=== PATIENT | female | born 1945 | race Caucasian/White ===

== ENCOUNTER 2016-07-02 14:02 | Inpatient (IN) | payer MEDICARE, OTHER ==
[~2016-07-02] VITALS: Ht 157.5 cm; Wt 58.0 kg
[2016-07-06] MEDS ORDERED: ALEN1TAB48 PO (10:06)
[2016-07-06] MEDS ORDERED: MULTTAB67 PO (10:06)
[2016-07-06] MEDS ORDERED: HYDR-3583 PO (10:06)
[2016-07-06] MEDS ORDERED: LANS15CA PO (10:06)
[2016-07-06] MEDS ORDERED: MONT10TA4 PO (10:06)
[2016-07-06] MEDS ORDERED: METO25TA3 PO (10:06)
[2016-07-06] MEDS ORDERED: POTA-163 PO (10:06)
[2016-07-06] MEDS ORDERED: ASPI1TAB69 PO (10:06)
[2016-07-06] MEDS ORDERED: METR28.4 TOPICAL (10:06)
[2016-07-06] MEDS ORDERED: CALC1TAB12 PO (10:06)
[2016-07-06] MEDS ORDERED: MAGN400T2 PO (10:06)
[2016-07-06] MEDS ORDERED: ZOLP5TAB3 PO (10:06)
[2016-07-06] MEDS ORDERED: AMLO5TAB2 PO (10:06)
[2016-07-13] MEDS: D5-NS + KCL 20 MEQ INJ 1,000 ML IV SCH ×2 (00:20→17:00)
[2016-07-13] MEDS: PCA - TOTAL MG MORPHINE DELIVERED PER SHIFT SCH (00:30)
[2016-07-13] MEDS ORDERED: LACTATED RINGER'S 1,000 ML BAG IV ONE (12:00)
[2016-07-13] MEDS ORDERED: PARENTERAL ELECTROLYTES PH 7.4 1000 ML BAG IV ONE (12:00)
[2016-07-13] MEDS ORDERED: PHENYLEPH/NS 1000 MCG/10 ML SYR IV ONE ×2 (12:00→13:00)
[2016-07-13] MEDS ORDERED: PROPOFOL 200 MG/20 ML AMP IV ONE ×2 (12:00→13:00)
[2016-07-13] MEDS ORDERED: ePHEDrine/NS 50 MG/5 ML SYR IV ONE ×2 (12:00→13:00)
[2016-07-13] MEDS ORDERED: ONDANSETRON HCL 4 MG/2 ML VIAL IV PUSH ONE ×2 (12:00→13:00)
[2016-07-13] MEDS ORDERED: LACTATED RINGER'S 1000 ML IV SCH (12:45)
[2016-07-13] MEDS ORDERED: METOPROLOL TARTRATE 25 MG TAB PO PRN (12:45)
[2016-07-13] MEDS ORDERED: ceFAZolin 1,000 MG/NS 100 ML IV SCH ×2 (12:45)
[2016-07-13] MEDS ORDERED: INSULIN HUMAN REGULAR 1,000 UNITS/10 ML VIAL SQ PRN (12:45)
[2016-07-13] MEDS ORDERED: ALVIMOPAN 12 MG CAPSULE - On Call PO SCH (12:45)
[2016-07-13] MEDS ORDERED: DEXT 5%-NACL 0.9% 1000 ML INJ 1,000 ML IV SCH (12:45)
[2016-07-13] MEDS ORDERED: SODIUM CHLORID 0.9% 500 ML IV SCH (12:45)
[2016-07-13] MEDS ORDERED: METRONIDAZOLE 500 MG/100 ML ISONTONIC SOLN IV SCH (12:45)
[2016-07-13 12:49] VITALS: BP 100/60; PULSE 68; RESP 20; TEMP 97.9; O2SAT 100
[2016-07-13] MEDS ORDERED: fentaNYL CITRATE 250 MCG/5 ML AMP IV ONE (13:00)
[2016-07-13] MEDS ORDERED: NORMOSOL R INJ 1,000 ML IV ONE (13:00)
[2016-07-13] MEDS ORDERED: LACTATED RINGER'S 1000 ML INJ 1,000 ML IV ONE (13:00)
[2016-07-13] MEDS ORDERED: SUGAMMADEX SODIUM 200 MG/2 ML VIAL IV PUSH ONE ×2 (13:47)
[2016-07-13] MEDS ORDERED: ACETAMINOPHEN 1000 MG/100 ML VIAL IV ONE (13:48)
[2016-07-13] MEDS ORDERED: ARTIFICIAL TEARS OPTH OINT 3.5 APPLIC/3.5 GM TUBO ONE (13:58)
[2016-07-13] MEDS ORDERED: MIDAZOLAM HCL 2 MG/2 ML VIAL ONE (13:59)
[2016-07-13] MEDS ORDERED: FAMOTIDINE 20 MG/2 ML VIAL ONE (14:00)
[2016-07-13] MEDS ORDERED: DEXAMETHASONE SOD PHOS 4 MG/ML VIAL ONE (14:01)
--- NOTE | 2016-07-13 14:02 | PD.HP.UP ---
H&P Update Note The Pre-Admit History and Physical Examination regarding the above named patient was reviewed (including, but not limited to, vital signs, heart, lungs, co-morbid conditions), and upon re-examination it is noted that: the patient's condition has not significantly changed since the last examination. Kojo Elizabeth MD Jul 13, 2016 14:02
[2016-07-13] MEDS ORDERED: BENZOCAINE 6 MG/MENTHOL 10 MG LOZENGE SUCK-ON PRN (16:30)
[2016-07-13] MEDS ORDERED: ALENDRONATE SODIUM 70 MG TAB PO SCH (16:30)
[2016-07-13] MEDS ORDERED: ENALAPRILAT 2.5 MG/2 ML VIAL IV PRN (16:30)
[2016-07-13] MEDS ORDERED: ACETAMINOPHEN/HYDROcodone 325 MG/5 MG TAB PO PRN ×2 (16:30)
[2016-07-13] MEDS ORDERED: POTASSIUM CHLOR 20 MEQ PREMIX 100 ML IV PRN (16:30)
[2016-07-13] MEDS ORDERED: NALOXONE HCL 0.4 MG/ML AMP IV PRN (16:30)
[2016-07-13] MEDS ORDERED: POTASSIUM CHLOR 40 MEQ PREMIX 100 ML IV PRN (16:30)
[2016-07-13] MEDS ORDERED: ENALAPRILAT 1.25 MG/ML VIAL IV PRN (16:30)
[2016-07-13] MEDS ORDERED: Post-op Orders (for Pharmacy) MISC XX ONE (16:30)
[2016-07-13] MEDS ORDERED: SODIUM CHLORIDE 0.9% FLUSH 5 ML FLUSH IVF PRN (16:30)
[2016-07-13] MEDS ORDERED: ACETAMINOPHEN 325 MG TAB PO PRN (16:30)
[2016-07-13] MEDS ORDERED: MORPHINE SULFATE 4 MG/ML INJ ONE (16:57)
[2016-07-13] MEDS ORDERED: KETOROLAC TROMETHAMINE 30 MG/ML (IVP) VIAL IVP PRN (17:00)
[2016-07-13] MEDS: MORPHINE SULFATE 30 MG/30 ML PCA IV SCH (17:13)
[2016-07-13] MEDS ORDERED: DO NOT ADM ANY ANTICOAGULANT DRUGS XX PRN (17:15)
[2016-07-13 20:00] VITALS: BP 115/60; PULSE 74; PULSE 80; RESP 18; TEMP 97.5; O2SAT 98
[2016-07-13] MEDS ORDERED: *morphine SULFATE 8 MG/ML PERIprocedure ONLY ONE (20:19)
[2016-07-13 21:00] VITALS: PULSE 74
[2016-07-13] MEDS: METOCLOPRAMIDE HCL 10 MG/2 ML VIAL IVS SCH (21:00)
[2016-07-13] MEDS: SODIUM CHLORIDE 0.9% FLUSH 5 ML FLUSH IVF SCH (21:00)
[2016-07-13 22:00] VITALS: BP 95/57; PULSE 80; PULSE 97; RESP 18; O2SAT 97
[2016-07-13] MEDS: metroNIDAZOLE 500 MG INJ 100 ML IV SCH (22:00)
[2016-07-13 23:00] VITALS: PULSE 84; PULSE 97
[2016-07-14] VITALS (17 sets, daily range): BP systolic 82–136; BP diastolic 52–69; PULSE 76–100; RESP 14–21; TEMP 97.4–98.7; O2SAT 94–98
[2016-07-14] MEDS: PCA - TOTAL MG MORPHINE DELIVERED PER SHIFT SCH ×4 (02:00→22:00)
[2016-07-14] MEDS: metroNIDAZOLE 500 MG INJ 100 ML IV SCH ×2 (05:41→13:59)
[2016-07-14] MEDS: MORPHINE SULFATE 30 MG/30 ML PCA IV SCH (06:27)
--- NOTE | 2016-07-14 06:55 | MP ---
cc: SARAH DOLAN DATE OF SURGERY 07/13/2016 PREOPERATIVE DIAGNOSIS Diverticulitis POSTOPERATIVE DIAGNOSIS Diverticulitis PROCEDURE Cystoscopy with bilateral ureteral catheter placement. SURGEON Sarah Dolan MD ANESTHESIA General endotracheal tube FLUIDS 200 cc's crystalloid ESTIMATED BLOOD LOSS There was no blood loss. COMPLICATIONS No complications. CONDITION She tolerated the procedure well. DRAINS Two bilateral 5-[place] ureteral catheters and a 16-Northern Irish Teresa. INDICATIONS Tessy Rondon is a 71-year-old female who had a history of diverticulitis and had a colostomy placed in the past. Dr. Elizabeth and Dr. Shane were performing a takedown of the colostomy and requests were made for bilateral ureteral catheter placement. PROCEDURE The patient brought to the operating room, identified by myself as Tessy Rondon and placed in the dorsolithotomy position. She was prepped and draped in the usual sterile fashion, received preprocedure antibiotics, and general endotracheal tube anesthesia was administered. A 22-Northern Irish cystoscope was inserted bladder and medina cystoscopy did not reveal any abnormalities. The left ureteral orifice was identified and a 5 inches open-ended catheter was inserted on the left side without difficulty and then this was repeated on the right side without difficulty. A 16-Northern Irish Teresa was then inserted without difficulty. She tolerated the procedure well. Sarah Dolan SWT/DJL /2:52 PM /6:44 AM
[2016-07-14] MEDS: D5-NS + KCL 20 MEQ INJ 1,000 ML IV SCH ×4 (07:30→23:04)
[2016-07-14 07:57] LABS: BASOPHIL % 0.1 % (0.0-2.0); HEMATOCRIT 29.1 % (35.0-46.0); HEMO FLAGS DIFF FINAL; LYMPH % 5.1 % (9.0-44.0); LYMPHOCYTE # 0.5 TH/MM3 (1.0-4.8); MEAN CELL VOLUME 94.1 FL (80.0-100.0); MEAN CORPUSCULAR HEMOGLOBIN 31.6 PG (27.0-34.0); MEAN CORPUSCULAR HGB CONC 33.6 % (32.0-36.0); MONO % 6.8 % (0.0-8.0); PLATELET COUNT 139 TH/MM3 (150-450); RED BLOOD COUNT 3.09 MIL/MM3 (4.00-5.30); RED CELL DISTRIBUTION WIDTH 20.2 % (11.6-17.2); WHITE BLOOD COUNT 10.2 TH/MM3 (4.0-11.0)
[2016-07-14 08:12] LABS: BICARBONATE 22.7 MEQ/L (21.0-32.0); POTASSIUM 4.2 MEQ/L (3.5-5.1)
[2016-07-14] MEDS ORDERED: HETASTARCH 6%/LACTAT LYTES INJ 500 ML IV ONE (08:30)
[2016-07-14] MEDS: PANTOPRAZOLE SODIUM 40 MG VIAL IVP SCH (08:53)
[2016-07-14] MEDS: SODIUM CHLORIDE 0.9% FLUSH 5 ML FLUSH IVF SCH ×2 (08:53→19:28)
[2016-07-14] MEDS: METOCLOPRAMIDE HCL 10 MG/2 ML VIAL IVS SCH ×2 (08:53→20:15)
[2016-07-14] MEDS: METOPROLOL TARTRATE 25 MG TAB PO SCH (08:53)
[2016-07-14] MEDS: ALVIMOPAN 12 MG CAPSULE - Post-op dosing PO SCH ×2 (08:53→20:15)
[2016-07-14] MEDS: MONTELUKAST SODIUM 5 MG CHEWABLE TAB PO SCH (08:54)
[2016-07-14] MEDS: PANTOPRAZOLE SOD 40 MG DELAYED RELEASE TAB PO SCH (08:54)
[2016-07-14] MEDS: amLODIPine BESYLATE 5 MG TAB PO SCH (08:54)
[2016-07-14] MEDS ORDERED: ALVIMOPAN 12 MG CAPSULE PO SCH (21:00)
--- NOTE | 2016-07-14 22:44 | HHI.PR ---
Subjective Remarks C/R Surg POD #1 afebrile, VSS UO fair PHILIPPE mod Objective - Vital Signs Date Time Temp Pulse Resp B/P Pulse Ox O2 Delivery O2 Flow Rate FiO2 07/14/16 20:23 98.7 92 16 136/69 94 07/14/16 08:00 Nasal Cannula 2.00 Result Diagram: 07/14/16 0739 07/14/16 0739 Objective Remarks PE alert Abd - soft, wound dry A/P Assessment and Plan Imp: stable post-op OOB decr IVF - add lasix tx to floor Kojo Elizabeth MD Jul 14, 2016 22:44
[2016-07-14] MEDS: FUROSEMIDE 20 MG/2 ML VIAL IV PUSH SCH (23:03)
[2016-07-15 00:15] VITALS: BP 152/78; PULSE 109; RESP 16; TEMP 98.4; O2SAT 93
[2016-07-15] MEDS: ONDANSETRON HCL 4 MG/2 ML VIAL IV PRN ×3 (03:55→21:19)
[2016-07-15 04:22] VITALS: BP 149/84; PULSE 101; RESP 16; TEMP 97.2; O2SAT 93
[2016-07-15 04:34] LABS: AUTOMATED NEUTROPHIL # 6.1 TH/MM3 (1.8-7.7); BASOPHIL % 0.1 % (0.0-2.0); EOSINOPHIL % 0.3 % (0.0-4.0); HEMATOCRIT 30.7 % (35.0-46.0); HEMO FLAGS DIFF FINAL; LYMPH % 8.8 % (9.0-44.0); LYMPHOCYTE # 0.6 TH/MM3 (1.0-4.8); MEAN CELL VOLUME 94.3 FL (80.0-100.0); MEAN CORPUSCULAR HEMOGLOBIN 31.1 PG (27.0-34.0); MONO % 5.3 % (0.0-8.0); NEUT % 85.5 % (16.0-70.0); PLATELET COUNT 141 TH/MM3 (150-450); RED BLOOD COUNT 3.26 MIL/MM3 (4.00-5.30); RED CELL DISTRIBUTION WIDTH 20.2 % (11.6-17.2); WHITE BLOOD COUNT 7.1 TH/MM3 (4.0-11.0)
[2016-07-15 05:02] LABS: BICARBONATE 24.5 MEQ/L (21.0-32.0); POTASSIUM 3.7 MEQ/L (3.5-5.1)
[2016-07-15] MEDS: PCA - TOTAL MG MORPHINE DELIVERED PER SHIFT SCH ×3 (06:00→21:12)
[2016-07-15] MEDS: PANTOPRAZOLE SOD 40 MG DELAYED RELEASE TAB PO SCH (06:59)
--- NOTE | 2016-07-15 07:14 | HHI.PR ---
Subjective Remarks C/R Surg POD #2 afebrile, VSS UO fair PHILIPPE min Objective - Vital Signs Date Time Temp Pulse Resp B/P Pulse Ox O2 Delivery O2 Flow Rate FiO2 07/15/16 04:22 97.2 101 16 149/84 93 07/14/16 21:30 Nasal Cannula 2.00 Result Diagram: 07/15/167 07/15/16326 Objective Remarks PE alert Abd - soft, wound dry, wound clean A/P Assessment and Plan Imp: OOB - ambulate decr IVF - add lasix stents dc'Kojo Corey MD Jul 15, 2016 07:14
[2016-07-15] MEDS: D5-NS + KCL 20 MEQ INJ 1,000 ML IV SCH ×2 (07:47→21:13)
[2016-07-15] MEDS: MONTELUKAST SODIUM 5 MG CHEWABLE TAB PO SCH (07:49)
[2016-07-15] MEDS: ALVIMOPAN 12 MG CAPSULE - Post-op dosing PO SCH ×2 (07:49→21:11)
[2016-07-15] MEDS: METOPROLOL TARTRATE 25 MG TAB PO SCH (07:49)
[2016-07-15] MEDS: amLODIPine BESYLATE 5 MG TAB PO SCH (07:50)
[2016-07-15] MEDS: FUROSEMIDE 20 MG/2 ML VIAL IV PUSH SCH ×2 (07:51→21:12)
[2016-07-15] MEDS: METOCLOPRAMIDE HCL 10 MG/2 ML VIAL IVS SCH ×2 (07:52→21:12)
[2016-07-15] MEDS: PANTOPRAZOLE SODIUM 40 MG VIAL IVP SCH (07:53)
[2016-07-15] MEDS: SODIUM CHLORIDE 0.9% FLUSH 5 ML FLUSH IVF SCH ×2 (07:56→21:12)
[2016-07-15 08:00] VITALS: BP 155/86; PULSE 108; RESP 18; TEMP 98.8; O2SAT 93
[2016-07-15 12:00] VITALS: BP 153/78; PULSE 92; RESP 17; TEMP 96.4; O2SAT 100
[2016-07-15 16:00] VITALS: BP 148/83; PULSE 100; RESP 17; TEMP 100.1; O2SAT 95
[2016-07-15 20:00] VITALS: BP 146/78; PULSE 90; RESP 18; TEMP 98.4; O2SAT 96
[2016-07-15] MEDS: ZOLPIDEM TARTRATE 5 MG TAB PO PRN (21:19)
--- NOTE | 2016-07-15 22:06 | MP ---
cc: SHELBY CORDERO M.D. DATE OF SURGERY 07/15/16 PREOPERATIVE DIAGNOSIS History of perforated diverticulitis, attention to colostomy. PROCEDURE 1. Exploratory laparotomy with lysis of adhesions, 2. Segmental colon resection and low pelvic anastomosis, 3. Closure of colostomy. POSTOPERATIVE DIAGNOSIS History of perforated diverticulitis, attention to colostomy. SURGEON Dr. Matt Cordero TRAIN DISPATCHER Dr. Nava Shane PROCEDURE IN DETAIL The patient was placed in the supine position. After adequate general anesthesia, her legs were placed in [place] stirrups and supported appropriately. The abdomen and perineum were then prepped with Betadine solution and draped in the usual sterile fashion. With Dr. Shane's assistance, the abdomen was opened through the previous midline incision. Upon entering the abdominal cavity, adhesions to the parietal peritoneum were taken down. Exploration revealed some adhesions in the pelvis and the small bowel was mobilized up with both blunt and sharp dissection. The rectal stump was identified and had minimal residual inflammatory change. The small bowel was run from ligament of Treitz down to ileocecal valve and felt to be normal. The proximal colon was palpated very carefully and felt to be pretty unremarkable. The stomach and duodenum were normal. The liver and gallbladder were unremarkable. First. the rectal pouch was mobilized by incising the lateral peritoneal reflection entering the presacral space and mobilizing the bowel up off the presacral fascia down to the pelvic floor. At an appropriate point in the mid to proximal rectum, the mesorectum was taken using electrocautery and the bowel divided between a pursestring suture device and a Maribeth clamp. Next, the colostomy was taken down from its attachments in the abdominal wall, returned to the abdomen. The colon was fully mobilized by incising the lateral peritoneal attachments off the retroperitoneum. There did appear to be sufficient length to reach the rectal pouch without tension leaving the left colic vessels. At the appropriate point, the marginal artery was taken and the bowel divided between a pursestring suture device and a Maribeth clamp. The end of the bowel was sized to accept a 29-mm EEA stapling anvil and this was secured with a pursestring suture. Dr. Shane inserted the EEA stapling instrument transanally under direct vision and it was brought up to the end of the rectal pouch with pursestring suture tied. The stapler was then reassembled, the bowel line properly, the staple closed and fired. Upon withdrawal, two complete doughnuts of tissue were seen. Gentle insufflation did confirm an airtight anastomosis. Abdomen was then irrigated copiously with normal saline. Adequate hemostasis was achieved at all sites. A Ayush-Agee drain was placed down into the presacral space and brought up through a stab wound in the right lower quadrant, secured to the skin with a nylon suture. The midline incision was closed anatomically one layer using #1 PDS sutures to reapproximate the midline fascia. The subcu tissues was irrigated copiously and the skin closed with a row of surgical naomy. The colostomy site was also closed in two layers with running #1 PDS sutures for the respective fascial layers and then surgical naomy for the skin. Wound area washed with normal saline and dried, sterile dressing of Telfa and gauze applied. The patient tolerated the procedure quite well and was brought to the recovery room in stable condition. Sponge and needle counts were correct at the end of the procedure. MD FRITZ Lozano/ /7:26 AM /9:47 PM
[2016-07-16] VITALS: BP 145/72; PULSE 89; RESP 16; TEMP 96.8; O2SAT 95
[2016-07-16] MEDS: PCA - TOTAL MG MORPHINE DELIVERED PER SHIFT SCH ×2 (06:00→11:58)
[2016-07-16] MEDS: PANTOPRAZOLE SODIUM 40 MG VIAL IVP SCH (07:04)
[2016-07-16 08:00] VITALS: BP 138/92; PULSE 93; RESP 16; TEMP 98.8; O2SAT 99
[2016-07-16] MEDS: METOCLOPRAMIDE HCL 10 MG/2 ML VIAL IVS SCH ×2 (08:41→21:21)
[2016-07-16] MEDS: MONTELUKAST SODIUM 5 MG CHEWABLE TAB PO SCH (08:41)
[2016-07-16] MEDS: ALVIMOPAN 12 MG CAPSULE - Post-op dosing PO SCH ×2 (08:41→21:21)
[2016-07-16] MEDS: amLODIPine BESYLATE 5 MG TAB PO SCH (08:41)
[2016-07-16] MEDS: PANTOPRAZOLE SOD 40 MG DELAYED RELEASE TAB PO SCH (08:41)
[2016-07-16] MEDS: METOPROLOL TARTRATE 25 MG TAB PO SCH (08:41)
[2016-07-16] MEDS: FUROSEMIDE 20 MG/2 ML VIAL IV PUSH SCH ×2 (08:43→21:21)
[2016-07-16] MEDS: SODIUM CHLORIDE 0.9% FLUSH 5 ML FLUSH IVF SCH ×2 (08:47→21:22)
[2016-07-16 12:00] VITALS: BP 135/86; PULSE 78; RESP 17; TEMP 97.6; O2SAT 96
[2016-07-16 16:00] VITALS: BP 139/76; PULSE 79; RESP 16; TEMP 98.5; O2SAT 100
[2016-07-16 20:00] VITALS: BP 126/60; PULSE 84; RESP 16; TEMP 98.8; O2SAT 95
[2016-07-16] MEDS: ZOLPIDEM TARTRATE 5 MG TAB PO PRN (21:22)
[2016-07-16] MEDS: D5-NS + KCL 20 MEQ INJ 1,000 ML IV SCH (21:22)
--- NOTE | 2016-07-16 22:08 | HHI.PR ---
Subjective Remarks C/R Surg POD #3 afebrile, VSS UO fair PHILIPPE min +flatus Objective - Vital Signs Date Time Temp Pulse Resp B/P Pulse Ox O2 Delivery O2 Flow Rate FiO2 07/16/16 20:00 98.8 84 16 126/60 95 07/16/16 09:07 Room Air 07/16/16 00:00 2.00 Result Diagram: 07/15/167 07/15/16326 Objective Remarks PE alert Abd - soft, wound dry, wound alightly red lower pole A/P Assessment and Plan Imp: OOB - ambulate decr IVF - add lasix adv diet Kojo Elizabeth MD Jul 16, 2016 22:08
[2016-07-16 23:40] VITALS: BP 156/76; PULSE 85; RESP 18; TEMP 96.8; O2SAT 96
[2016-07-17 08:00] VITALS: BP 105/69; PULSE 96; RESP 15; TEMP 95.9; O2SAT 96
[2016-07-17] MEDS: MONTELUKAST SODIUM 5 MG CHEWABLE TAB PO SCH (08:11)
[2016-07-17] MEDS: PANTOPRAZOLE SODIUM 40 MG VIAL IVP SCH (08:11)
[2016-07-17] MEDS: PANTOPRAZOLE SOD 40 MG DELAYED RELEASE TAB PO SCH (08:11)
[2016-07-17] MEDS: ALVIMOPAN 12 MG CAPSULE - Post-op dosing PO SCH (08:12)
[2016-07-17] MEDS: METOCLOPRAMIDE HCL 10 MG/2 ML VIAL IVS SCH (08:12)
[2016-07-17] MEDS: FUROSEMIDE 20 MG/2 ML VIAL IV PUSH SCH (08:12)
[2016-07-17] MEDS: METOPROLOL TARTRATE 25 MG TAB PO SCH (08:13)
[2016-07-17] MEDS: SODIUM CHLORIDE 0.9% FLUSH 5 ML FLUSH IVF SCH (08:13)
[2016-07-17] MEDS: amLODIPine BESYLATE 5 MG TAB PO SCH (08:13)
--- NOTE | 2016-07-17 10:08 | HHI.DCPOC ---
Discharge Care Plan Diagnosis: (1) Colostomy Closure Your Health Problems Are: Incision/Drains Appetite Changes Irregular Bowel Function Exercise Tolerance Goals to Promote Your Health * To prevent worsening of your condition and complications * To maintain your health at the optimal level Directions to Meet Your Goals Take your medications as prescribed Follow your dietary instruction Follow activity as directed Keep your appointments as scheduled Take your immunizations and boosters as scheduled If your symptoms worsen call your PCP, if no PCP go to Urgent Care Center or Emergency Room Smoking is Dangerous to Your Health. Avoid second hand smoke Call the 24-hour hour crisis hotline for domestic abuse at Elias Shane MD Jul 17, 2016 10:08
[2016-07-18] MEDS ORDERED: METRONIDAZOLE 1% TOPICAL SCH (09:00)
[2016-07-18] MEDS ORDERED: CALCIUM/VITAMIN D 250 MG/125 U TAB PO SCH (09:00)
[2016-07-18] MEDS ORDERED: ASPIRIN EC 81 MG TABEC PO SCH (09:00)
[2016-07-18] MEDS ORDERED: MULTIVITAMIN TAB PO SCH (09:00)
[2016-07-18] MEDS ORDERED: POTASSIUM CHLORIDE 20 MEQ CONTROLLED RELEASE TAB PO SCH (09:00)
[2016-07-18] MEDS ORDERED: PANTOPRAZOLE SOD 20 MG DELAYED RELEASE TAB PO SCH (09:00)
[2016-07-18] MEDS ORDERED: MAGNESIUM OXIDE 400 MG TAB PO SCH (11:00)
--- NOTE | 2016-08-22 12:47 | MD ---
cc: SHELBY CORDERO M.D., ANUNPORN M.D. ADMISSION DATE: 07/13/2016 DISCHARGE DATE: 07/17/2016 ADMISSION DIAGNOSIS History of diverticulitis status post Kt resection. PROCEDURE: 07/13/2009, cystoscopy and bilateral stent placement Exploratory laparotomy with lysis of adhesions, segmental colon resection, low pelvic anastomosis, closure of colostomy. DISCHARGE DIAGNOSES 07/13/2009, cystoscopy and bilateral stent placement Exploratory laparotomy with lysis of adhesions, segmental colon resection, low pelvic anastomosis, closure of colostomy. HISTORY OF PRESENT ILLNESS Ms. Rondon is a 71-year-old female presented several months ago with a perforation from diverticulitis. She underwent a diverting colostomy and a Kt resection. She had a slow recovery and required several months to regain her strength. Her appetite has improved, her weight has gone up several pounds and she is pretty much back to baseline activity level. Recent colonic evaluation showed no further inflammation of the colon, there were no polyps or tumors. She presents at this time for closure of her colostomy. Please see admitting history and physical for more complete past medical and surgical history. PERTINENT PHYSICAL A very pleasant older female in no acute distress. Abdomen was very soft and flat. Wound was opened in the lower part with a small wound sinus heading toward the umbilicus, colostomy was pink and patent. Anal inspection revealed benign canal. Digital exam revealed good to fair tone with no masses or tenderness in the pelvis. HOSPITAL COURSE After admission, the patient was taken to the operating room on the July at which point she underwent exploratory laparotomy with lysis of adhesions, segmental colon resection and low pelvic anastomosis. She had her colostomy closed during the surgery. She also had cystoscopy and placement of bilateral ureteral stents. She tolerated the procedure well. Initially she was stabilized in the intensive care unit. Her GI tract function began quite promptly her diet was advanced. She was able to be weaned off her IV fluids rather promptly. Her ambulation was assisted with physical therapy and some muscle strengthening. She continued to improve and was comfortable enough to switch to oral pain medicine and be considered ready for discharge home on July 17, 2016. Final pathology report revealed no evidence of any tumor just foreign body giant cell reaction and nonspecific inflammatory changes. DISCHARGE INSTRUCTIONS The patient was discharged eating a regular diet. She was encouraged to ambulate daily avoiding any heavy lifting or straining. All preop medications were to be resumed. The patient will be seen in the office in one weeks' time for routine follow-up. Any problems prior to the scheduled office visit the patient was encouraged to call for more urgent attention. MD FRITZ Lozano/DELORES /1:50 PM /12:40 PM
== END 2016-07-17 12:19 | disposition home or self-care (01) | DRG 330 ==
LOC: HSDI 07-13 11:54 → HPAC 07-14 02:56 → N07A 07-14 12:38
PROVIDERS: ADMIT Colon & Rectal Surgery; ATTEND Colon & Rectal Surgery
PROC: 0DQN0ZZ Repair Sigmoid Colon, Open Approach (ICD-10-PCS; principal; 2016-07-15)
PROC: 0DTP0ZZ Resection of Rectum, Open Approach (ICD-10-PCS; 2016-07-15)
PROC: 0DTN0ZZ Resection of Sigmoid Colon, Open Approach (ICD-10-PCS; 2016-07-15)
DX: Z43.3 Encounter for attention to colostomy (principal); K57.32 Diverticulitis of large intestine without perforation or abscess without bleeding; K57.92 Diverticulitis of intestine, part unspecified, without perforation or abscess without bleeding
CPT/HCPCS: 80048; 85025; 86850; 86900; 86901; 88304; 88309; 94150; C1769; C9113; J0131; J0690; J1100; J1885; J1940; J2250; J2270; J2370; J2405; J2765; J3010; J3480; J7120

== ENCOUNTER → 2016-07-06 | Outpatient (CLI) | payer MEDICARE, OTHER ==
[~2016-07-06] MED LIST: 1-ME1LIQ PO; ALEN1TAB48 PO; AMBI5TAB PO; AMLO5TAB2 PO; ASPI1TAB69 PO; CALC1TAB12 PO; CALCTAB32 PO; FOLI1 PO; FOSA70TA PO; HYDR-3583 PO; HYDR10SO PO; KCL20 PO; LANS15CA PO; MAGN400 PO; MAGN400T2 PO; METO25 PO; METO25TA3 PO; METR1GEL2 EX; METR28.4 TOPICAL; MONT10TA2 PO; MONT10TA4 PO; MULT-65 PO; MULTTAB67 PO; OMEG12002 PO; POTA-163 PO; PRED5 PO; PREV15CA20 PO; WALKER ROLLING; WHEELCHAIR RENTAL RA; ZOLP5TAB3 PO
[2016-07-06 10:00] LABS: APTT (PATIENT) 26.4 SEC (24.3-30.1); PROTHROMBIN TIME - PATIENT 10.6 SEC (9.8-11.6)
[2016-07-06 10:01] LABS: AUTOMATED NEUTROPHIL # 1.6 TH/MM3 (1.8-7.7); BASOPHIL % 0.6 % (0.0-2.0); EOSINOPHIL # 0.1 TH/MM3 (0-0.4); EOSINOPHIL % 3.9 % (0.0-4.0); HEMATOCRIT 34.2 % (35.0-46.0); HEMO FLAGS DIFF FINAL; LYMPHOCYTE # 1.5 TH/MM3 (1.0-4.8); MEAN CELL VOLUME 91.2 FL (80.0-100.0); MEAN CORPUSCULAR HEMOGLOBIN 31.1 PG (27.0-34.0); MEAN CORPUSCULAR HGB CONC 34.1 % (32.0-36.0); MONO % 12.2 % (0.0-8.0); NEUT % 42.3 % (16.0-70.0); PLATELET COUNT 173 TH/MM3 (150-450); RED BLOOD COUNT 3.75 MIL/MM3 (4.00-5.30); RED CELL DISTRIBUTION WIDTH 20.7 % (11.6-17.2); WHITE BLOOD COUNT 3.7 TH/MM3 (4.0-11.0)
[2016-07-06 10:18] LABS: ALKALINE PHOSPHATASE 53 U/L (45-117); ALT (GPT) 25 U/L (10-53); ANION GAP 11 MEQ/L (5-15); AST (GOT) 30 U/L (15-37); BICARBONATE 25.5 MEQ/L (21.0-32.0); BLOOD UREA NITROGEN 16 MG/DL (7-18); CHLORIDE 92 MEQ/L (98-107); GLOMERULAR FILTRATION RATE 58 ML/MIN (>89); GLUCOSE,FASTING 83 MG/DL (74-99); POTASSIUM 4.7 MEQ/L (3.5-5.1); SODIUM (NA) 128 MEQ/L (136-145); TOTAL BILIRUBIN ADULT 0.7 MG/DL (0.2-1.0)
--- NOTE | 2016-07-06 11:11 | RADRPT ---
EXAM DATE/TIME: 07/06/2016 10:42 [place] COMPARISON: No previous studies available for comparison. INDICATIONS : Evaluate for pneumonia, pneumothorax, and communicable disease. Preop for laparotomy and colonic rese ction. MEDICAL HISTORY : Leaky valve. SURGICAL HISTORY : None. ENCOUNTER: Initial ACUITY: 1 day PAIN SCORE: 0/10 LOCATION: Bilateral chest FINDINGS: PA and lateral views of the chest demonstrate linear atelectasis or scarring at the lung bases. No ef fusion. No pneumothorax. Heart size within normal limits. Tortuous aorta. CONCLUSION: 1. No active disease. Minimal basilar scarring or atelectasis. Barrington Tinoco MD on July 06, 2016 at 11:08 Board Certified Radiologist. This report was verified electronically.
[2016-07-06 12:28] LABS: BLOOD, URINE NEG (NEG); GLUCOSE,URINE NEG (NEG); KETONE, URINE NEG (NEG); NITRITE,URINE NEG (NEG); PH, URINE 6.5 (5.0-8.5); SQUAMOUS EPITHELIAL CELL URINE 1 /hpf (0-5); URINE COLOR YELLOW (YELLW/STRAW)
[2016-07-06 12:35] LABS: COMMENT (UR) CULT NOT INDICATED; CULTURE IF INDICATED CULT NOT INDICATED
--- NOTE | 2016-07-06 23:34 | EKG ---
Date Performed: 07/06/2016 Time Performed: 09:52:19 PTAGE: 71 years EKG: Sinus rhythm RIGHT BUNDLE BRANCH BLOCK ABNORMAL ECG PREVIOUS TRACING : 02/08/2016 03.27 DOCTOR: Markos Whitman Interpretating Date/Time 07/06/2016 23:33:15
== END ==
LOC: CPRE 09:00
PROVIDERS: ATTEND Colon & Rectal Surgery
DX: Z01.812 Encounter for preprocedural laboratory examination (principal); Z01.811 Encounter for preprocedural respiratory examination; Z01.810 Encounter for preprocedural cardiovascular examination; K57.32 Diverticulitis of large intestine without perforation or abscess without bleeding; I45.10 Unspecified right bundle-branch block; R94.31 Abnormal electrocardiogram [ECG] [EKG]
CPT/HCPCS: 36415; 71020; 80053; 81001; 85025; 85610; 85730; 93005